=== PATIENT | female | born 1985 | race Caucasian/White ===

== ENCOUNTER 2025-06-07 10:22 | Emergency (ER) | payer OTHER, SELFPAY ==
[2025-06-07 11:32] LABS: Glucose, Urine (Dipstick) Normal (Negative); Leukocyte Negative (Negative); Protein, Urine (Dipstick) Negative (Neg-Trace); Specific Gravity, Urine 1.005 (1.005-1.030)
[2025-06-07 11:52] LABS: Bacteria/HPF Rare-Few HPF (None Seen); CAUTI Indications for Culture Pelvic or flank pain; RBC/HPF 0-3 HPF (0-3); WBC/HPF None Seen HPF (0-3)
[2025-06-07 11:58] LABS: Urine Culture Reflex No No
== END 2025-06-07 11:54 | disposition home or self-care (01) ==
LOC: CSHERS 10:22
DX: O99.891 Other specified diseases and conditions complicating pregnancy (principal); R10.9 Unspecified abdominal pain; Z3A.18 18 weeks gestation of pregnancy
CPT/HCPCS: 81001